=== PATIENT | female | born 1950 | race Caucasian/White ===

== ENCOUNTER → 2021-04-20 12:06 | Outpatient (BNVA) | payer MEDICARE, BC, SELFPAY | PROVIDERS: Family Provider Family Medicine; Visit Provider Internal Medicine | DX: Z01.812 Encounter for preprocedural laboratory examination (principal); Z12.11 Encounter for screening for malignant neoplasm of colon | CPT/HCPCS: 87635 ==

== ENCOUNTER 2021-04-26 07:54 | Day surgery (SDC) | payer MEDICARE, BC, SELFPAY ==
[2021-04-23 08:43] VITALS: BMI 22.6
[2021-04-26 08:14] VITALS: BP 154/74; PULSE 83; RESP 20; TEMP 36.1; O2SAT 97
[2021-04-26] MEDS: sodium chloride 0.9% 1,000 ML 30 ML IV (08:26)
--- NOTE | 2021-04-26 08:38 | P.ANESASSM_ITS ---
Documented by User: Martha Izaguirre CRNA 04/26/21 08:42 Pre-Anesthetic Assessment Pre-Anesthetic Assessment: Height/Weight: Height 1.68 m Weight 63.503 kg Temp Pulse Resp BP Pulse Ox 97 F L 83 20 H 154/74 97 04/26/21 08:14 04/26/21 08:14 04/26/21 08:14 04/26/21 08:14 04/26/21 08:14 Preop Diagnosis: screening Proposed Procedure: Operation Date: 04/26/21 09:00 Proposed Procedures p Colonoscopy G0121 Z12.11(Not Applicable) - Supa El MD Was Beta Yovani taken within 24 hours: N/A Was Clonidine taken within 24 hours: N/A Last intake: Intake Last Liquid Date 04/25/21 Last Liquid Time 20:00 Last Solid Date 04/24/21 Last Solid Time 21:00 Social: Social History: No alcohol and No tobacco Exam: Pre-Anes Outpt Exam: alert, oriented x 3, clear to auscultation bilaterally and regular rate & rhythm Airway: Submandibular: WNL Cervical ROM: WNL MP: 2 Dentition: False History/ROS: No significant history except as noted Pulmonary: Pulmonary: None reported CV/HEM: CV/HEM: HTN : : None reported Hepatic: Hepatic: None reported Metabolic: Metabolic: DM (diet/exercise control) and Hyperlipidemia Musc/skel: Musc/skel: None reported Neuropsych: Neuropsych: None reported Anesthetic Plan: ASA status: 2 Anesthesia: Anesthesia Evaluation and MAC Risk of > 500 ml blood loss (7ml/kg in children): No Meds/Allergies 2 Current Medications: Current Medications Generic Name Dose Route Start Last Admin Trade Name Freq PRN Reason Stop Dose Admin Sodium Chloride 1,000 mls @ 30 ml s/hr 04/26/21 08:15 04/26/21 08:26 Sodium Chloride 0.9% IV 04/27/21 08:14 30 mls/hr .Q24H KATELYN Administration Data Anesthesia Cardiac Studies: No Data to Display Documented by User: Mike Campbell 04/26/21 15:26 Data Anesthesia Cardiac Studies: No Data to Display
--- NOTE | 2021-04-26 09:25 | W.PM.OPSFHP ---
Same Day Surgery H&P Indication for Procedure/HPI DATE OF PROCEDURE: April 26, 2021 CHIEF COMPLAINT/INDICATIONFOR SURGICAL PROCEDURE: Screening PREOP DIAGNOSIS: screening PLANNED PROCEDRUE: Operation Date: 04/26/21 09:00 Proposed Procedures p Colonoscopy G0121 Z12.11(Not Applicable) - Supa El MD Medications/Allergies* Home Medications Medication Instructions Recorded Confirmed Type amlodipine 10 mg tablet 10 mg PO DAILY 04/01/21 04/26/21 History aspirin 81 mg tablet,delayed 81 mg PO DAILY 04/01/21 04/26/21 History release calcium-vit D3-ferrous fumarate 1 tab PO DAILY tab 04/01/21 04/26/21 History 600 mg-125 unit-18 mg tablet lovastatin 20 mg tablet 20 mg PO DAILY 04/01/21 04/26/21 History multivitamin 1 tab PO DAILY 04/01/21 04/26/21 History Allergies/Adverse Reactions Allergy/AdvReac Type Severity Reaction Status Date / Time No Known Allergies Allergy Verified 04/01/21 10:22 Current Medications: Generic Name Dose Route Start Last Admin Trade Name Freq PRN Reason Stop Dose Admin Sodium Chloride 1,000 mls @ 30 mls/hr 04/26/21 08:15 04/26/21 08:26 Sodium Chloride 0.9% IV 04/27/21 08:14 30 mls/hr .Q24H KATELYN Administration Pertinent Exam Findings alert, oriented x 3, clear to auscultation bilaterally, regular rate & rhythm, operative site marked and procedure specific exam findings Recommendations Surgery/Procedure today Coding Level of Care Code Acute Carbonation Tester for Khushi Mcdonald
[2021-04-26 09:41] VITALS: BP 106/55; PULSE 63; RESP 18; TEMP 36.1; O2SAT 95
[2021-04-26 09:53] VITALS: BP 121/71; PULSE 77; RESP 18; O2SAT 96
--- NOTE | 2021-04-26 15:26 | ANE.PACU2 ---
Inpatient post-anesthesia follow up: Airway intact: Yes Vital signs: Temperature 97.0 F Pulse Rate 77 Respiratory Rate 18 Blood Pressure 121/71 Pulse Oximetry 96 Oxygen Delivery Me thod Room Air Oxygen Flow Rate Fraction of Inspir ed Oxygen Hydration adequate: Yes Nausea and vomiting: No Pain level: 1 Mental status: Baseline
== END 2021-04-26 10:12 | disposition home or self-care (01) ==
PROVIDERS: Family Provider Family Medicine; Visit Provider Internal Medicine
PROC: 0DJD8ZZ Inspection of Lower Intestinal Tract, Via Natural or Artificial Opening Endoscopic (ICD-10-PCS; CPT 45378; principal; 2021-04-26 09:00)
DX: Z12.11 Encounter for screening for malignant neoplasm of colon (principal); Z79.82 Long term (current) use of aspirin; I10 Essential (primary) hypertension; E11.9 Type 2 diabetes mellitus without complications; E78.5 Hyperlipidemia, unspecified
CPT/HCPCS: 96360; G0121; J2704; J7030

== ENCOUNTER 2021-10-30 22:27 | Emergency (ER) | payer MEDICARE, BC, SELFPAY ==
[2021-10-30 22:31] VITALS: BP 164/75; PULSE 101; RESP 17; TEMP 38; O2SAT 96; BMI 23.3
--- NOTE | 2021-10-30 22:32 | XRR_ITS ---
PROCEDURE INFORMATION: Exam: XR Chest Exam date and time: 10/30/2021 10:32 PM Age: 70 years old Clinical indication: Cough and shortness of breath and other: Runny nose; Patient HX: C/O shortness of breath; Cough, runny nose; Additional info: SOB TECHNIQUE: Imaging protocol: XR of the chest. Views: 1 view. COMPARISON: No relevant prior studies available. FINDINGS: Lungs: Unremarkable. No consolidation. Pleural spaces: Unremarkable. No pleural effusion. No pneumothorax. Heart/Mediastinum: Unremarkable. No cardiomegaly. Bones/joints: Unremarkable. XR/XR chest 1V portable [id number] IMPRESSION: No acute findings.
--- NOTE | 2021-10-30 23:50 | ED_ITS ---
HPI - Fever General: Chief Complaint: Fever Stated Complaint: cough, runny nose Time Seen by Provider: 10/30/21 23:40 Source: patient Mode of arrival: ambulatory Limitations: no limitations History of Present Illness: HPI Narrative: 70-year-old female who states that over the last 2 days she has had a cough congestion some slight body aches low- grade fevers. States she been around multiple family members with similar symptoms including her who is here as well. She is able speak in full sentences she denies any weakness denies any vomiting or diarrhea denies any wo rsening improving factors. She denies any chest pain. Associated symptoms: Reports chills; Deny abdominal pain, chest pain, diarrhea, dysuria, headache(s), nausea or vomiting Review of Systems Const: Reports: fever(s), chills and body aches Eyes: Denies: blurry vision or eye discomfort ENMT: Denies: throat pain or dental pain Card: Denies: chest pain Resp: Reports: non-productive cough GI: Denies: abdominal pain, nausea, vomiting or diarrhea : Denies: dysuria Musc: Denies: neck pain or back pain Skin/Breast: Denies: rash Neuro: Denies: headache(s) Psych: Denies: depression Garry/Lymph: Denies: easy bruising All/Imm: Denies: urticaria Physical Exam Const: COMMON NORMALS: no acute distress, patient oriented x3 and healthy appearing HENMT: COMMON NORMALS: normocephalic and atraumatic HEAD & SCALP: normocephalic and atraumatic Eye: COMMON NORMALS: Equal, round and reactive pupils present and EOMs intact bilaterally PUPIL: Yes Equal, round and reactive pupils present Neck/C-Spine: COMMON NORMALS: full ROM and supple Chest: COMMONS NORMALS: normal inspection of the chest and normal palpation of entire chest wall Resp: COMMON NORMALS: normal respiratory effort, No retractions, No use of accessory muscles and clear to auscultation bilaterally AUSCULTATION: clear to auscultation bilaterally Cardio: COMMON NORMALS: regular rate, regular rhythm and No murmurs present (Cardio) RATE: regular rate RHYTHM: regular rhythm GI: COMMON NORMALS: Normal to inspection, nondistended, normoactive bowel sounds present, Soft to palpation, non-tender and no masses PALPATION: Yes Soft to palpation Extremity: COMMON NORMALS: normal to inspection and full ROM Neuro: COMMON NORMALS: patient oriented x3, moves all extremities and no focal motor deficits Psych: COMMON NORMALS: mental status grossly normal, Normal thought process present and cooperative THOUGHT PROCESS: Normal thought process present Skin: COMMON NORMALS: no rashes or lesions noted and no wounds GENERAL SKIN EXAM: no rashes or lesions noted Course Vital Signs: Vital signs: Vital Signs Temperature 100.4 F H 10/30/21 22:31 Pulse Rate 101 H 10/30/21 22:31 Respiratory Rate 17 10/30/21 22:31 Blood Pressure 164/75 10/30/21 22:31 Pulse Oximetry 96 10/30/21 22:31 MDM - Fever MDM Narrative: Medical decision making narrative: Patient presents here with cough congestion likely viral syndrome. Very well could be Covid Covid PCR was noted she is in no distress and no hypoxia x-ray is normal she stable for discharge is to follow-up with PCP and return if worsening. Imaging Data^: CXR: Attestation: I personally reviewed and interpreted this imaging study as follows: Radiologist's impression: [address] [place] [address] XRay Report Signed Patient: Kalina Mccormick Unit #: [id number] : 1950 Age/Sex: 70 / F ADM Date: 10/30/21 Loc: ER Room/Bed: Attending Dr: Ordering Provider/Ordering MD: Carlos Garcia MD Date of Service: 10/30/21 Procedure(s): XR chest 1V portable [id number] Accession Number(s): [id number] Report Number: [id number] PROCEDURE INFORMATION: Exam: XR Chest Exam date and time: 10/30/2021 10:32 PM Age: 70 years old Clinical indication: Cough and shortness of breath and other: Runny nose; Patient HX: C/O shortness of breath; Cough, runny nose; Additional info: SOB TECHNIQUE: Imaging protocol: XR of the chest. Views: 1 view. COMPARISON: No relevant prior studies available. FINDINGS: Lungs: Unremarkable. No consolidation. Pleural spaces: Unremarkable. No pleural effusion. No pneumothorax. Heart/Mediastinum: Unremarkable. No cardiomegaly. Bones/joints: Unremarkable. XR/XR chest 1V portable [id number] IMPRESSION: No acute findings. Dictated By: Andre Soliman MD Signed By: Andre Soliman MD Signed Date/Time: 10/30/212304 DD/ 31 Discharge Plan Discharge Patient Disposition: Home Clinical Impression: Upper respiratory infection Qualifiers: URI type: unspecified URI Qualified Code(s): J06.9 - Acute upper respiratory infection, unspecified Condition: Stable Prescriptions: No Action amlodipine 10 mg tablet 10 mg PO DAILY RF: 0 lovastatin 20 mg tablet 20 mg PO DAILY RF: 0 multivitamin [Daily Multi-Vitamin] Tablet 1 tab PO DAILY RF: 0 [id number] fumarate 600-125-18 mg-unit-mg tablet 1 tab PO DAILY RF: 0 aspirin 81 mg tablet,delayed release (DR/EC) 81 mg PO DAILY RF: 0 Discharge Orders: Discharge ED (Routine); Ordered 10/30/21 Ordered By: Carlos Garcia Discharge Diet: Advance as tolerated Discharge Activity: Resume usual activity Patient Instructions: Upper Respiratory Infection (ED) Coding Level of Care Code ED Photocopying Equipment Mechanic for Khushi Mcdonald
[2021-10-31] MEDS: acetaminophen 325 mg Tablet 650 MG PO (00:22)
[2021-10-31 00:34] VITALS: PULSE 90; RESP 16; O2SAT 96
[2021-10-31] MEDS: albuterol 8 gm MDI 2 PUFF INHALATION (00:34)
[2021-10-31 01:12] VITALS: TEMP 36.3; O2SAT 96
[2021-10-31 02:13] LABS: Adenovirus Not Detected (NOT DETECT); Chlamydia Pneumoniae Not Detected (NOT DETECT); Coronavirus 229E,HKU1,NL63,OC4 Not Detected (NOT DETECT); Human Metapneumovirus Not Detected (NOT DETECT); Human Rhinovirus/Enterovirus Not Detected (NOT DETECT); Influenza A Not Detected (NOT DETECT); Influenza A H1 Not Detected (NOT DETECT); Influenza A H1-2009 Not Detected (NOT DETECT); Influenza A H3 Not Detected (NOT DETECT); Influenza B Not Detected (NOT DETECT); Mycoplasma Pneumoniae Not Detected (NOT DETECT); Parainfluenza Virus Type 1 Not Detected (NOT DETECT); Parainfluenza Virus Type 2 Not Detected (NOT DETECT); Parainfluenza Virus Type 3 Not Detected (NOT DETECT); Parainfluenza Virus Type 4 Not Detected (NOT DETECT); Respiratory Syncytial Virus A Not Detected (NOT DETECT); Respiratory Syncytial Virus B Not Detected (NOT DETECT); SARS-COV-2 Detected (NOT DETECT)
[2021-10-31 02:28] LABS: Results from Genmark
== END 2021-10-31 01:13 | disposition home or self-care (01) ==
PROVIDERS: Emergency Provider Emergency Medicine
DX: U07.1 COVID-19 (principal); Z79.82 Long term (current) use of aspirin
CPT/HCPCS: 71045; 87631; 87635; 94640; 99283; J3535

== ENCOUNTER 2021-11-01 14:48 | Outpatient (CLI) | payer MEDICARE, BC, SELFPAY ==
[2021-11-01 15:31] VITALS: BP 158/82; PULSE 73; RESP 18; TEMP 37.1; O2SAT 97; BMI 22.9
[2021-11-01 16:44] VITALS: BP 151/81; PULSE 69; RESP 18; TEMP 36.9; O2SAT 98
[2021-11-01 17:44] VITALS: BP 149/78; PULSE 64; RESP 17; TEMP 36.9; O2SAT 98
== END 2021-11-01 14:49 | disposition home or self-care (01) ==
LOC: OPS 14:55
PROVIDERS: PCP Family Medicine; Visit Provider Emergency Medicine
DX: U07.1 COVID-19 (principal)
CPT/HCPCS: 96365

== ENCOUNTER → 2023-07-07 08:25 | Outpatient (BNVA) | payer MEDICARE, BC, SELFPAY | PROVIDERS: PCP Family Medicine; Referring Provider Family Medicine; Visit Provider Internal Medicine | DX: E04.1 Nontoxic single thyroid nodule (principal); E04.2 Nontoxic multinodular goiter; R79.89 Other specified abnormal findings of blood chemistry | CPT/HCPCS: 36415; 83516; 84439; 84443; 84480; 86376; 86800; 99204 ==

== ENCOUNTER 2023-10-03 09:33 | Outpatient (CLI) | payer MEDICARE, BC, SELFPAY ==
[2023-10-03 11:21] LABS: Free T4 Free Thyroxine 1.44 ng/dL (0.82-1.77); Thyroid Stimulating Hormone 0.48 uIU/mL (0.27-4.20)
[2023-10-05 00:54] LABS: T3 Total 132 ng/dL (76-181)
== END 2023-10-03 09:34 | disposition home or self-care (01) ==
PROVIDERS: PCP Family Medicine; Visit Provider Internal Medicine
DX: E04.2 Nontoxic multinodular goiter (principal); R79.89 Other specified abnormal findings of blood chemistry
CPT/HCPCS: 84439; 84443; 84480

== ENCOUNTER → 2023-10-16 09:09 | Outpatient (BNVA) | payer MEDICARE, BC, SELFPAY | PROVIDERS: PCP Family Medicine; Visit Provider Internal Medicine | DX: E04.1 Nontoxic single thyroid nodule (principal); E04.2 Nontoxic multinodular goiter; R79.89 Other specified abnormal findings of blood chemistry; I10 Essential (primary) hypertension | CPT/HCPCS: 99214 ==

== ENCOUNTER 2024-03-18 08:42 | Outpatient (CLI) | payer MEDICARE, BC, SELFPAY ==
--- NOTE | 2024-03-18 10:15 | US_ITS ---
WS: [id number] THYROID ULTRASOUND HISTORY: thyroid nodules COMPARISON: None available. Right lobe: 2.1 cm x 2.8 cm x 3.9 cm (w x ap x l). Volume: 11.3 cm3. Normal sized gland. Very mild heterogeneity. Subcentimeter 4 mm nodule anteriorly. There is an additi onal slightly hypoechoic nodule in the mid gland measuring 1.2 x 0.9 x 1.2 cm. No echogenic foci. Mil d increased vascularity. Left lobe: 1.4 cm x 1.5 cm x 4.3 cm (w x ap x l). Volume: 4.4 cm3. Normal sized gland. Hypoechoic nodule in the inferior pole with a small cystic component measures 0.8 x 0.7 x 1.3 cm. No echogenic foci. Isthmus: 0.3 cm. US/US thyroid [id number] IMPRESSION: TI-RADS 3; bilateral thyroid nodules. Recommend yearly ultrasound evaluation.
== END 2024-03-18 08:43 | disposition home or self-care (01) ==
LOC: RAD 08:43
PROVIDERS: PCP Family Medicine; Visit Provider Internal Medicine
DX: E04.1 Nontoxic single thyroid nodule (principal); E04.2 Nontoxic multinodular goiter
CPT/HCPCS: 76536

== ENCOUNTER 2024-04-05 09:04 | Outpatient (CLI) | payer MEDICARE, BC, SELFPAY ==
[2024-04-05 10:29] LABS: Free T4 Free Thyroxine 1.46 ng/dL (0.82-1.77)
== END 2024-04-05 09:05 | disposition home or self-care (01) ==
LOC: LAB 09:05
PROVIDERS: PCP Family Medicine; Visit Provider Internal Medicine
DX: E04.1 Nontoxic single thyroid nodule (principal)
CPT/HCPCS: 36415; 84439; 84443

== ENCOUNTER → 2024-06-14 10:14 | Outpatient (BNVA) | payer MEDICARE, BC, SELFPAY | PROVIDERS: PCP Family Medicine; Visit Provider Internal Medicine | DX: E04.1 Nontoxic single thyroid nodule (principal); E04.2 Nontoxic multinodular goiter; R79.89 Other specified abnormal findings of blood chemistry; I10 Essential (primary) hypertension; Z79.84 Long term (current) use of oral hypoglycemic drugs | CPT/HCPCS: 99214 ==

== ENCOUNTER 2025-05-21 10:43 | Outpatient (CLI) | payer MEDICARE, BC, SELFPAY ==
--- NOTE | 2025-05-21 10:45 | US_ITS ---
WS: [id number] THYROID ULTRASOUND HISTORY: multiple thyroid nodules COMPARISON: 03/18/2024 Right lobe: 2.1 cm x 1.5 cm x 4.6 cm (w x ap x l). Volume: 7.0 cm3. Vague slightly hypoechoic nodule in the mid RIGHT thyroid measures 0.9 x 0.8 x 1.4 cm. No increase in size. There is mild increased vascularity. There has been no change in the echogenic pattern. There are a few small punctate focus which are now present. Left lobe: 1.9 cm x 1.4 cm x 4.4 cm (w x ap x l). Volume: 5.5 cm3. Normal sized gland. Reidentified is a hypoechoic nodule in the mid gland measuring 1.1 x 0.8 x 1.0 cm. This nodule was previously described in the lower pole. Nodule has become more hyperechoic since the prior study but no enlargement. Isthmus: 0.3 cm. US/US thyroid [id number] IMPRESSION: 1. TI-RADS 5; mid RIGHT thyroid nodule has developed some very small punctate echogenic foci. This nodule is very ill-defined and may be difficult to biopsy. Recommend ultrasound-guided FNA attempt at this time. 2. TI-RADS 3; LEFT thyroid nodule. Continued yearly ultrasound follow-up nodul e within the LEFT thyroid.
== END 2025-05-21 10:44 | disposition home or self-care (01) ==
PROVIDERS: PCP Family Medicine; Visit Provider Internal Medicine
DX: E04.2 Nontoxic multinodular goiter (principal)
CPT/HCPCS: 76536

== ENCOUNTER 2025-05-30 08:52 | Outpatient (CLI) | payer MEDICARE, BC, SELFPAY ==
[2025-05-30 10:25] LABS: Free T4 Free Thyroxine 1.44 ng/dL (0.82-1.77); Thyroid Stimulating Hormone 0.58 uIU/mL (0.27-4.20)
== END 2025-05-30 08:53 | disposition home or self-care (01) ==
LOC: LAB 08:54
PROVIDERS: PCP Family Medicine; Visit Provider Internal Medicine
DX: E04.1 Nontoxic single thyroid nodule (principal); E04.2 Nontoxic multinodular goiter; R79.89 Other specified abnormal findings of blood chemistry; I10 Essential (primary) hypertension
CPT/HCPCS: 36415; 84439; 84443; 99214

== ENCOUNTER 2025-06-18 11:14 | Outpatient (CLI) | payer MEDICARE, BC, SELFPAY ==
--- NOTE | 2025-06-18 11:45 | US_ITS ---
WS: [id number] ULTRASOUND THYROID FNA CLINICAL INFORMATION: throid nodules TECHNIQUE: Ultrasound-guided FNA FINDINGS: The procedure including risks, benefits, and complications were discussed with the patient who agreed to proceed. Timeout was performed. Using sterile technique patient was prepped and draped in usual sterile fashion. After 1% lidocaine, using ultrasound guidance, a 25-gauge needle was advanced into the RIGHT thyroid nodule. 5 passes were made with active aspiration. Pathology was present for slide preparation. No immediate complications. Patient remained in the ultrasound suite 10 minutes postprocedure with intermittent ultrasound to ensure no hematoma. No hematoma 10 minutes postprocedure. US/US biopsy/FNA thyroid [id number] IMPRESSION: 1. Uncomplicated ultrasound-guided thyroid FNA RIGHT thyroid nodule 2. Cytology is pending.
== END 2025-06-18 11:15 | disposition home or self-care (01) ==
LOC: RAD 11:15
PROVIDERS: PCP Family Medicine; Visit Provider Internal Medicine
DX: E04.2 Nontoxic multinodular goiter (principal)
CPT/HCPCS: 10005; 88173